=== PATIENT | female | born 1965 | race Caucasian/White ===

== ENCOUNTER 2019-07-08 15:50 | Emergency (ER) | payer SELFPAY ==
[2019-07-08] MEDS ORDERED: ACETAMINOPHEN 500 MG TAB ONE (18:06)
[2019-07-08] MEDS ORDERED: HYDROmorphone HCL INJ 2 MG/ML VIAL ONE (18:10)
[2019-07-08] MEDS ORDERED: DEXAMETHASONE INJ 10 MG/ML VIAL ONE (18:11)
== END 2019-07-08 19:00 | disposition home or self-care (01) ==
LOC: ER 15:50
DX: R51 Headache (principal); J11.1 Influenza due to unidentified influenza virus with other respiratory manifestations; E87.1 Hypo-osmolality and hyponatremia; J02.9 Acute pharyngitis, unspecified; E11.9 Type 2 diabetes mellitus without complications; Z53.29 Procedure and treatment not carried out because of patient's decision for other reasons
CPT/HCPCS: 80053; 81001; 83690; 85025; 87070; 87077; 87502; 87880; J1100; J1170